=== PATIENT | female | born 2000 ===

== ENCOUNTER 2024-12-31 14:49 | Outpatient (CLI) | payer OTHER | END 2024-12-31 14:50 | disposition home or self-care (01) | LOC: PRENATAL 14:49 | PROVIDERS: ATTEND Obstetrics & Gynecology Maternal & Fetal Medicine | DX: O44.00 Complete placenta previa NOS or without hemorrhage, unspecified trimester (principal); Z3A.27 27 weeks gestation of pregnancy ==